=== PATIENT | female | born 1985 | race African-American/Black ===

== ENCOUNTER 2020-05-29 04:15 | Emergency (ER) | payer OTHER ==
[~2020-05-29] VITALS: Ht 149.9 cm; Wt 65.0 kg
--- NOTE | 2020-05-29 04:30 | PHYS DOC ---
Past History Past Medical History: GERD General Adult EDM: Chief Complaint: DIARRHEA HPI: HPI: ".. I woke up at 200 with this severe abdomen paiin and this diarrhea that would not stop.. now my rectal area has bright red blood.. with the watery stools.. 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 Patient states she has had some many stools she cannot count them. Patient denies any recent travel or overseas assignments.. Patient does have a past medical history of GERD. Has not been overseas for a year and her last assignment was [employer]. Not exposed to animals. Did eat at [employer] for dinner. as well. Patient is up-to-date with vaccinations. Patient is currently on control pills. Patient is not on any anticoagulants or taking NSAIDs. There is family history hypertension diabetes but no history of colitis or colon cancer. Review of Systems: Review of Systems: Constitutional: Denies fever or chills Eyes: Denies change in visual acuity HENT: Denies nasal congestion or sore throat Respiratory: Denies cough or shortness of breath Cardiovascular: Denies chest pain or edema GI: Complains of generalized abdominal pain, nausea, bloody stools and diarrhea : Denies dysuria Musculoskeletal: Denies back pain or joint pain Integument: Denies rash Neurologic: Denies headache, focal weakness or sensory changes Endocrine: Denies polyuria or polydipsia Lymphatic: Denies swollen glands Psychiatric: Denies depression or anxiety Family History: Family History: Hypertension and diabetes Current Medications: Current Meds: See nursing for home meds Allergies: Allergies: No known drug allergies Physical Exam: PE: Constitutional: Well developed, well nourished, moderate acute distress, non- toxic appearance. [] HENT: Normocephalic, atraumatic, bilateral external ears normal, oropharynx moist, no oral exudates, nose normal. [] Eyes: PERRLA, EOMI, conjunctiva normal, no discharge. [] Neck: Normal range of motion, no tenderness, supple, no stridor. [] Cardiovascular:Heart rate regular rhythm, no murmur [] Lungs & Thorax: Bilateral breath sounds equal at apex auscultation [] Abdomen: Bowel sounds hyperactive l, soft, generalized tenderness, no masses, no pulsatile masses. Some rebound to the lower abdomen. Rectal exam shows no gross blood. Skin: Warm, dry, no erythema, no rash. [] Back: No tenderness, no CVA tenderness. [] Extremities: No tenderness, no cyanosis, no clubbing, ROM intact, no edema. No psoas sign. Neurologic: Alert and oriented X 3, normal motor function, normal sensory function, no focal deficits noted. [] Psychologic: Affect anxious, judgement normal, mood normal. [] EKG: EKG: [] Radiology/Procedures: Radiology/Procedures: [] Heart Score: Risk Factors: Risk Factors: DM, Current or recent (<one month) smoker, HTN, HLP, family history of CAD, obesity. Risk Scores: Score 0 - 3: 2.5% MACE over next 6 weeks - Discharge Home Score 4 - 6: 20.3% MACE over next 6 weeks - Admit for Clinical Observation Score 7 - 10: 72.7% MACE over next 6 weeks - Early Invasive Strategies Course & Med Decision Making: Course & Med Decision Making Pertinent Labs and Imaging studies reviewed. (See chart for details) Patient instructed on clear fluid diet for the next 2 days. No solids or milk products. Must allow bowel rest. Push fluids such as apple juice ,grape juice, popsicles, sweet tea, Pedialyte Gatorade, Jell-O, 7-Up etc. Patient take Zofran 8 mg with 4 times a day for nausea. May take [id number] Pepto-Bismol 2 tablets with every stool maximum of 8 tablets a day. Take Pepcid 20 mg twice a day. Follow-up with primary. Return if any concerns. Consider colonoscopy to evaluate for colitis or other causes of lower GI bleeding.. Take Tylenol for the pain. Reexam if no improvement. Impression: 1. Acute gastroenteritis vs food poisoning 2. Outlet bleeding 3 Hx. of GERD Ronn Disclaimer: Ronn Disclaimer: This electronic medical record was generated, in whole or in part, using a voice recognition dictation system. Departure Departure: Scripts Acetaminophen (ACETAMINOPHEN) 500 Mg Tablet 1000 MG PO QIDPRN PRN for pain, fever, #120 TAB Prov: TA ERIC MD 05/29/20 Bismuth Subsalicylate (PEPTO-BISMOL TO-GO) 262 Mg Tab.chew 262 MG PO QIDPRN PRN for DIARRHEA, #90 TAB.CHEW Prov: TA ERIC MD 05/29/20 Famotidine (PEPCID) 20 Mg Tablet 20 MG PO BID for gerd for 30 Days, #60 TAB Prov: TA ERIC MD 05/29/20 Ondansetron Hcl (ZOFRAN) 4 Mg Tablet 8 MG PO QIDPRN PRN for NAUSEA/VOMITING, #30 TAB Prov: TA ERIC MD 05/29/20 Dragon Disclaimer This chart was dictated in whole or in part using Voice Recognition software in a busy, high-work load, and often noisy Emergency Department environment. It may contain unintended and wholly unrecognized errors or omissions. TA ERIC MD May 29, 2020 04:30
[2020-05-29] MEDS ORDERED: ONDANSETRON PF 4 MG/2 ML VIAL. IVP ONE (04:45)
[2020-05-29] MEDS ORDERED: FAMOTIDINE 20 MG/2 ML VIAL IVP ONE (04:45)
[2020-05-29] MEDS ORDERED: oxyCODONE/APAP 5/325 1 TAB TABLET PO ONE (04:45)
[2020-05-29] MEDS ORDERED: BISMUTH SUBSALICYLATE 262 MG/15 ML ORAL.SUSP 236ML BOTTLE. PO STA (04:45)
[2020-05-29] MEDS ORDERED: IV RINGERS SOLUTION,LACTATED 1,000 ML IV SCH (04:45)
[2020-05-29] MEDS ORDERED: BISMUTH SUBSALICYLATE 262 MG TAB.CHEW PO ONE (04:56)
[2020-05-29] MEDS ORDERED: BISMUTH SUBSALICYLATE 262 MG TAB.CHEW PO PRN (05:00)
[2020-05-29 05:09] LABS: BASO % 1 % (0-3); EOS # 0.1 x10^3/uL (0.0-0.7); EOS % 1 % (0-3); HEMATOCRIT 41.2 % (36.0-47.0); HEMOGLOBIN 13.3 g/dL (12.0-15.5); LYMPH # 1.8 x10^3/uL (1.0-4.8); LYMPH % 19 % (24-48); MEAN CORPUSCULAR HEMOGLOBIN 27 pg (25-35); MEAN CORPUSCULAR HGB CONC 32 g/dL (31-37); MEAN CORPUSCULAR VOLUME 84 fL (79-100); MONO # 0.2 x10^3/uL (0.0-1.1); MONO % 2 % (0-9); NEUT # 7.5 x10^3uL (1.8-7.7); NEUT % 78 % (31-73); PLATELET COUNT 341 x10^3/uL (140-400); RED BLOOD COUNT 4.92 x10^6/uL (3.50-5.40); RED CELL DISTRIBUTION WIDTH 13.7 % (11.5-14.5); WHITE BLOOD COUNT 9.6 x10^3/uL (4.0-11.0)
[2020-05-29 05:13] LABS: BILIRUBIN,URINE NEG (NEG); CLARITY,URINE CLEAR; COLOR,URINE YELLOW; GLUCOSE,URINE NEG (NEG)
[2020-05-29 05:13] LABS: GFR 77.3
[2020-05-29 05:14] LABS: BACTERIA,URINE 0 /HPF (0-FEW); NITRITE,URINE NEG (NEG); RBC,URINE RARE /HPF (0-2); SQUAMOUS EPITHELIAL CELL,UR FEW /LPF; UROBILINOGEN,URINE 0.2 mg/dL (0.2 mg/dL); WBC,URINE OCC /HPF (0-4)
[2020-05-29] MEDS ORDERED: FAMO-63 PO (05:16)
[2020-05-29] MEDS ORDERED: ACET500T68 PO (05:16)
[2020-05-29] MEDS ORDERED: ONDA4TAB7 PO (05:16)
[2020-05-29] MEDS ORDERED: BISM262T7 PO (05:16)
[2020-05-29 05:20] LABS: ALBUMIN 3.6 g/dL (3.4-5.0); DIRECT BILIRUBIN 0.1 mg/dL (0.0-0.2); TOTAL BILIRUBIN 0.5 mg/dL (0.2-1.0)
[2020-05-29] MEDS ORDERED: BISMUTH SUBSALICYLATE 262 MG/15 ML ORAL.SUSP 236ML BOTTLE. PO ONE (05:45)
[2020-05-29 06:09] VITALS: BP 127/74
== END 2020-05-29 06:05 | disposition home or self-care (01) ==
LOC: ER 04:15
DX: A05.9 Bacterial foodborne intoxication, unspecified (principal); R19.7 Diarrhea, unspecified; R10.84 Generalized abdominal pain; R11.0 Nausea; K21.9 Gastro-esophageal reflux disease without esophagitis
CPT/HCPCS: 36415; 80048; 80076; 81001; 81025; 82150; 85025; 85610; 85730; 96361; 96374; 96375; 99284; J2405; J3490; J7120